=== PATIENT | male | born 1945 | race Hispanic/Latino ===

== ENCOUNTER 2018-04-08 15:40 | Emergency (ER) | payer MEDICARE, OTHER ==
[2018-04-08 16:02] VITALS: BMI 25.7
[2018-04-08 16:06] VITALS: PULSE 88
[2018-04-08] MEDS ORDERED: Albuterol-Ipratrop 3 mg / 0.5 (3 ml) UD IH STA ×2 (16:09→16:10)
[2018-04-08] MEDS ORDERED: Sodium Chloride 0.9% 500 ML IV STA (16:09)
[2018-04-08] MEDS ORDERED: Albuterol-Ipratrop 3 mg / 0.5 (3 ml) UD INH STA (16:09)
--- NOTE | 2018-04-08 16:16 | ED PDOC ---
HPI: SOB/CHF/COPD Time Seen by Provider: 04/08/18 16:01 Chief Complaint (Nursing): Shortness Of Breath Chief Complaint (Provider): Difficulty Breathing and Cough History Per: Patient History/Exam Limitations: no limitations Onset/Duration Of Symptoms: Days Current Symptoms Are (Timing): Still Present Exacerbating Factor(s): Laying Flat Current Respiratory Medications: None Severity: None Associated Symptoms: Productive Cough. denies: Fever, Chills, Bloody Cough, Dizziness, Light-headedness Additional Complaint(s): 72 year old male with a past medical history of bronchitis and hypertension presents to the emergency department complaining of difficulty breathing, headache and cough x2 days. Patient reports that a few days prior he was cleaning his air conditioning unit and used bleach and lysol spray and that is when his symptoms began. He also reports that when he lays down he feels as though he is drowning. Denies nausea, vomiting, neck pain, dizziness, chest pain , back pain, abdominal pain, lightheadedness, palpitations, ankle/leg swelling. Clear phlegm. Headache is mild and with his cough. Not worst in his life. No neck pain, numbness, tingles. No long distance travel, no hormone tx, no calf pain. Of note: At home patient currently takes Naprosyn and Prednisone PMD: [place] (Dr. Taylor) Past Medical History Reviewed: Historical Data, Nursing Documentation, Vital Signs Vital Signs: Last Vital Signs Temp 97.9 F 04/08/18 16:03 Pulse 88 04/08/18 16:03 Resp 16 04/08/18 16:30 BP 138/64 04/08/18 16:07 Pulse Ox 97 04/08/18 16:31 - Medical History PMH: Arthritis, Bronchitis, HTN (NO MEDICATION) Denies: Chronic Kidney Disease - Surgical History Surgical History: Tonsillectomy - Family History Family History: States: Unknown Family Hx - Social History Current smoker - smoking cessation education provided: Yes (Light Smoker < 10 Cigarettes Daily) Ex-Smoker (has not smoked in the last 12 months): No Alcohol: None Drugs: Denies - Home Medications Home Medications: Ambulatory Orders Medication Instructions Recorded Naproxen [Naprosyn] 250 mg PO DAILY 01/05/16 Albuterol Sulfate [Proair Hfa] 0.09 mg IH Q6H PRN #2 inh 04/08/18 predniSONE [predniSONE Tab] 20 mg PO BID 5 Days tab 04/08/18 - Allergies Allergies/Adverse Reactions: Allergies Allergy/AdvReac Type Severity Reaction Status Date / Time No Known Allergies Allergy Verified 12/22/14 19:24 Review of Systems ROS Statement: Except As Marked, All Systems Reviewed And Found Negative Constitutional: Negative for: Fever, Chills Cardiovascular: Negative for: Chest Pain, Palpitations Respiratory: Positive for: Cough, Shortness of Breath Gastrointestinal: Negative for: Nausea, Vomiting, Abdominal Pain Musculoskeletal: Negative for: Back Pain Neurological: Positive for: Headache Physical Exam - Reviewed Nursing Documentation Reviewed: Yes Vital Signs Reviewed: Yes - Physical Exam Appears: Positive for: Non-toxic, No Acute Distress Head Exam: Positive for: ATRAUMATIC, NORMAL INSPECTION, NORMOCEPHALIC Skin: Positive for: Normal Color, Warm, Dry. Negative for: Rash Eye Exam: Positive for: Normal appearance, EOMI, PERRL. Negative for: Nystagmus ENT: Positive for: Normal ENT Inspection. Negative for: Nasal Congestion, Tonsillar Exudate, Tonsillar Swelling Neck: Positive for: Normal, Painless ROM, Supple Cardiovascular/Chest: Positive for: Regular Rate, Rhythm, Chest Non Tender. Negative for: Gallop, Murmur, Tachycardia Respiratory: Positive for: Wheezing (Coarse breath sounds and bilateral wheezing ). Negative for: Rales, Rhonchi, Respiratory Distress Gastrointestinal/Abdominal: Positive for: Normal Exam, Bowel Sounds, Soft. Negative for: Tenderness, Mass, Guarding, Rebound Back: Positive for: Normal Inspection. Negative for: L CVA Tenderness, R CVA Tenderness, Vertebral Tenderness Extremity: Positive for: Normal ROM. Negative for: Tenderness, Calf Tenderness , Deformity, Swelling Neurologic/Psych: Positive for: Alert, Oriented, Gait - Laboratory Results Result Diagrams: 04/08/18 16:47 Interpretation Of Abn Labs: 11.1 wbc - ECG ECG: Positive for: Interpreted By Me, Viewed By Me ECG Rhythm: Positive for: Normal QRS, Normal ST Segment, Sinus Rhythm, Premature Ventricular Contraction (1) O2 Sat by Pulse Oximetry: 97 (RA) Pulse Ox Interpretation: Normal - Radiology X-Ray: Interpreted by Me, Viewed By Me X-Ray Interpretation: No Acute Disease - Progress ED Course And Treament: 1802: Stable. Pt. does not want to stay in the hospital for further evaluation and treatment. Pt. refusing further tx. States he feels much better. No dyspnea. Aware to return right away for further eval, tx, and addmit if changes his mind. Return for any dyspnea, chest pain, numbness, tingles, weakness, or not feeling well. Pt. is aaox3. Has capacity to make decisions. Medical Decision Making Medical Decision Makin Initial Impression 72 year old male presenting with difficulty breathing, cough and headache Initial Plan: * EKG * B-type natriuretic * CMP * Troponin * CBC * PTT * Prothrombin Time * Albuterol 3mL INH * NS 500 mls IV 1000 mls/hr * Solumedrol 125 mg IP * Nebulizer Treatment * Influenza A B * Reevaluation 1651 EKG performed: Normal sinus rhythm; No acute STT changes ------- Documented by Brittanie Sykes acting as a scribe for Gordo Saez MD. All medical record entries made by the Scribe were at my direction and personally dictated by me. I have reviewed the chart and agree that the record accurately reflects my personal performance of the history, physical exam, medical decision making, and the department course for this patient. I have also personally directed, reviewed, and agree with the discharge instructions and disposition. Disposition - Clinical Impression Clinical Impression: Dyspnea - Patient ED Disposition Is Patient to be Admitted: No - Disposition Referrals: Doris Swenson MD [Staff Provider] - 04/09/18 Disposition: Routine/Home Disposition Time: 18:11 Condition: STABLE Additional Instructions: Return right away for further evaluation, treatment, and admission. You are refusing at this time. We do not know what is causing your shortness of breath. If you get any shortness of breath, chest pain, weakness, or not feeling right come back right away. Prescriptions: Albuterol Sulfate [Proair Hfa] 0.09 mg IH Q6H PRN #2 inh PRN Reason: Wheezing predniSONE [predniSONE Tab] 20 mg PO BID 5 Days tab Instructions: Shortness of Breath (Dyspnea) (DC) Forms: [employer] (Thai)
[2018-04-08] MEDS ORDERED: Albuterol-Ipratrop 3 mg / 0.5 (3 ml) UD ONE (16:18)
[2018-04-08 17:00] LABS: BASO # 0.1 K/uL (0.0-0.2); BASO % 0.6 % (0.0-2.0); EOS # 0.4 K/uL (0.0-0.7); EOS % 3.4 % (0.0-4.0); HEMOGLOBIN 14.7 g/dL (12.0-18.0); LYMPH # 2.9 K/uL (1.0-4.3); LYMPH % 26.4 % (20.0-40.0); MEAN CELL VOLUME 90.3 fl (80.0-94.0); MEAN CORPUSCULAR HEMOGLOBIN 30.1 pg (27.0-31.0); MEAN CORPUSCULAR HGB CONC 33.4 g/dL (33.0-37.0); MEAN PLATELET VOLUME 9.2 fl (7.2-11.7); MONO # 1.6 K/uL (0.0-0.8); MONO % 14.2 % (0.0-10.0); NEUT # 6.2 K/uL (1.8-7.0); NEUT % 55.4 % (50.0-75.0); RBC 4.87 Mil/uL (4.40-5.90); RED CELL DISTRIBUTION WIDTH 13.2 % (11.5-14.5); WHITE BLOOD COUNT 11.1 K/uL (4.8-10.8)
[2018-04-08 17:04] LABS: PROTHROMBIN TIME 10.6 Seconds (9.8-13.1)
[2018-04-08 17:05] LABS: PARTIAL THROMBOPLASTIN TIME 29.3 Seconds (25.6-37.1)
[2018-04-08 17:22] LABS: ALB/GLOB RATIO 1.1 (1.0-2.1); ALBUMIN 4.2 g/dL (3.5-5.0); CALCIUM 9.1 mg/dL (8.4-10.2); GFR AFRICAN-AMERICAN > 60; GFR NON-AFRICAN AMERICAN > 60
[2018-04-08 17:40] LABS: B-TYPE NATRIURETIC PEPTIDE 68.9 pg/ml (0-900)
[2018-04-08 17:45] LABS: ALT/SGPT 26 U/L (21-72); AST/SGOT 40 U/L (17-59); BLOOD UREA NITROGEN 19 mg/dl (9-20)
[2018-04-08 18:28] VITALS: BP 133/82; RESP 17; TEMP 98.2; O2SAT 96
--- NOTE | 2018-04-09 10:16 | RAD ---
HISTORY: dyspnea COMPARISON: 09/12/2013 FINDINGS: LUNGS: No active pulmonary disease. PLEURA: No significant pleural effusion identified, no pneumothorax apparent. CARDIOVASCULAR: Normal. OSSEOUS STRUCTURES: No significant abnormalities. VISUALIZED UPPER ABDOMEN: Normal. OTHER FINDINGS: None. IMPRESSION: No active disease.
--- NOTE | 2018-04-09 16:54 | CARD ---
APPROVED REPORT EKG Measurement Heart [id number] <Conclusion> Sinus rhythm with occasional premature ventricular complexes Otherwise normal ECG
== END 2018-04-08 18:28 | disposition home or self-care (01) ==
LOC: H.ER 15:40
DX: R06.00 Dyspnea, unspecified (principal); R51 Headache; R05 Cough; I10 Essential (primary) hypertension; F17.210 Nicotine dependence, cigarettes, uncomplicated
CPT/HCPCS: 71045; 80053; 83880; 84484; 85025; 85610; 85730; 87804; 93005; 94640; 96374; 99284; J2930; J7040

== ENCOUNTER 2019-02-23 21:32 | Emergency (ER) | payer MEDICARE, OTHER ==
[2019-02-23 21:33] VITALS: BMI 25.7
[2019-02-23 21:37] VITALS: RESP 18
[2019-02-23 22:22] LABS: BASO # 0.1 K/uL (0.0-0.2); BASO % 1.1 % (0.0-2.0); EOS # 0.4 K/uL (0.0-0.7); EOS % 4.4 % (0.0-4.0); HEMOGLOBIN 14.9 g/dL (12.0-18.0); LYMPH # 3.2 K/uL (1.0-4.3); LYMPH % 33.5 % (20.0-40.0); MEAN CELL VOLUME 95.2 fl (80.0-94.0); MEAN CORPUSCULAR HGB CONC 34.7 g/dL (33.0-37.0); MONO # 0.7 K/uL (0.0-0.8); MONO % 7.6 % (0.0-10.0); NEUT # 5.1 K/uL (1.8-7.0); NEUT % 53.4 % (50.0-75.0); RBC 4.53 Mil/uL (4.40-5.90); RED CELL DISTRIBUTION WIDTH 13.7 % (11.5-14.5); WHITE BLOOD COUNT 9.6 K/uL (4.8-10.8)
[2019-02-23 22:26] LABS: ALB/GLOB RATIO 1.5 (1.0-2.1); ALBUMIN 4.7 g/dL (3.5-5.0); ALT/SGPT 28 U/L (21-72); AST/SGOT 29 U/L (17-59); BLOOD UREA NITROGEN 18 mg/dl (9-20); CALCIUM 9.1 mg/dL (8.4-10.2); GFR NON-AFRICAN AMERICAN > 60
--- NOTE | 2019-02-23 22:41 | ED PDOC ---
Syncope/Near Syncope/Dizziness Time Seen by Provider: 02/23/19 21:40 Chief Complaint (Nursing): Chest Pain Chief Complaint (Provider): Syncope History Per: Patient History/Exam Limitations: no limitations Additional Complaint(s): 73 y/o male presents to the ER for syncope. Patient reports he was taking a shower and suddenly fell back and does not know what happened. He was not sure how long he was out for and found himself on the floor of the shower unable to get up. He reports this has happened multiple times before with 10 times in the last 5 years. He has not been worked up for this. Patient presented today because it occurred in a common bathroom. Patient lives in an individual studio where the bathroom is shared. He admits to drinking alcohol today. Last meal was at 15:00 today. Denies chest pain, despite EMS reports he had mentioned it earlier. Denies drug use. PMD: Dr. Barron at [facility] Past Medical History Reviewed: Historical Data, Nursing Documentation, Vital Signs Vital Signs: Last Vital Signs Temp 98.1 F 02/23/19 21:34 Pulse 75 02/23/19 21:34 Resp 18 02/23/19 21:34 BP 116/66 02/23/19 21:34 Pulse Ox 98 02/23/19 21:34 Primary Care Provider: FAMILY PROVIDER,NO - Medical History PMH: Arthritis, Bronchitis, HTN (NO MEDICATION) Denies: Chronic Kidney Disease - Surgical History Surgical History: Tonsillectomy - Family History Family History: States: No Known Family Hx - Social History Current smoker - smoking cessation education provided: Yes - Home Medications Home Medications: Ambulatory Orders Medication Instructions Recorded Naproxen [Naprosyn] 250 mg PO DAILY 01/05/16 Albuterol Sulfate [Proair Hfa] 0.09 mg IH Q6H PRN #2 inh 04/08/18 predniSONE [predniSONE Tab] 20 mg PO BID 5 Days tab 04/08/18 - Allergies Allergies/Adverse Reactions: Allergies Allergy/AdvReac Type Severity Reaction Status Date / Time No Known Allergies Allergy Verified 12/22/14 19:24 Review of Systems ROS Statement: Except As Marked, All Systems Reviewed And Found Negative (as per HPI) Cardiovascular: Negative for: Chest Pain Respiratory: Negative for: Shortness of Breath Physical Exam - Reviewed Nursing Documentation Reviewed: Yes Vital Signs Reviewed: Yes - Physical Exam Appears: Positive for: No Acute Distress Head Exam: Positive for: ATRAUMATIC, NORMAL INSPECTION, NORMOCEPHALIC Skin: Positive for: Warm, Dry Eye Exam: Positive for: EOMI, PERRL, Conjunctival injection ENT: Negative for: Pharyngeal Erythema, Tonsillar Exudate Neck: Positive for: Painless ROM, Supple Cardiovascular/Chest: Positive for: Regular Rate, Rhythm. Negative for: Murmur Respiratory: Positive for: Normal Breath Sounds. Negative for: Respiratory Distress Gastrointestinal/Abdominal: Positive for: Soft. Negative for: Tenderness Back: Positive for: Normal Inspection. Negative for: Decreased ROM Extremity: Positive for: Normal ROM, Other (Large lipoma on right forearm, (-) nontender). Negative for: Deformity Lymphatic: Negative for: Adenopathy Neurological/Psych: Positive for: Awake, Alert, Oriented (x3). Negative for: Motor/Sensory Deficits - Laboratory Results Result Diagrams: 02/23/19 22:07 02/23/19 22:07 Lab Results: Total Bilirubin 0.4 mg/dl (0.2-1.3) 02/23/19 22:07 AST 29 U/L (17-59) 02/23/19 22:07 ALT 28 U/L (21-72) 02/23/19 22:07 Alkaline Phosphatase 72 U/L (38-126) 02/23/19 22:07 Total Protein 7.8 G/DL (6.3-8.2) 02/23/19 22:07 Albumin 4.7 g/dL (3.5-5.0) 02/23/19 22:07 Globulin 3.1 gm/dL (2.2-3.9) 02/23/19 22:07 Albumin/Globulin Ratio 1.5 (1.0-2.1) 02/23/19 22:07 - ECG O2 Sat by Pulse Oximetry: 98 (RA) Pulse Ox Interpretation: Normal Medical Decision Making Medical Decision Making: Initial Impression: Syncope Differential includes seizure, dehydration, electrolyte abnormality, and alcohol intoxication. Initial Plan: --Type and screen stat --Head CT --Alcohol serum stat --CMP --Lact acid stat --Magnesium stat --Phosphorous stat --Troponin stat --ED urine dipstick --CBC --PTT --Prothrombin time 23:00 Patient signed out to Dr. Constantino. Pending CT and sobriety. - Scribe Attestation: Documented by Tio Burt acting as a scribe for Betty Hillman MD. Provider Scribe Attestation: All medical record entries made by the Scribe were at my direction and personally dictated by me. I have reviewed the chart and agree that the record accurately reflects my personal performance of the history, physical exam, medical decision making, and the department course for this patient. I have also personally directed, reviewed, and agree with the discharge instructions and disposition. Disposition - Clinical Impression Clinical Impression: Alcohol use, Atypical chest pain - Disposition Disposition: Transfer of Care Disposition Time: 23:00 Condition: STABLE Forms: [employer] (Croatian) Print Language: GERMAN Patient Signed Over To: Liliana Constantino
--- NOTE | 2019-02-23 23:42 | ED PDOC ---
- Laboratory Results Result Diagrams: 02/23/19 22:07 02/23/19 22:07 Lab Results: Troponin I < 0.0120 ng/mL (0.00-0.120) 02/23/19 22:07 Total Bilirubin 0.4 mg/dl (0.2-1.3) 02/23/19 22:07 AST 29 U/L (17-59) 02/23/19 22:07 ALT 28 U/L (21-72) 02/23/19 22:07 Alkaline Phosphatase 72 U/L (38-126) 02/23/19 22:07 Total Protein 7.8 G/DL (6.3-8.2) 02/23/19 22:07 Albumin 4.7 g/dL (3.5-5.0) 02/23/19 22:07 Globulin 3.1 gm/dL (2.2-3.9) 02/23/19 22:07 Albumin/Globulin Ratio 1.5 (1.0-2.1) 02/23/19 22:07 - ECG O2 Sat by Pulse Oximetry: 98 (RA) Pulse Ox Interpretation: Normal Medical Decision Making Medical Decision Making: Time: 2300 Patient is a 73 y/o male brought into the ED by EMS for alcohol abuse. Patient was found passed out, heavily intoxicated in the shower by other residents in his building. Patient denies headache, nausea, and vomiting. Patient endorsed to provider from Betty Hillman MD. Pending CT. Alcohol level 238, otherwise normal labs. As per EMS report patient also complained of chest pain, however, adamantly denies chest pain now with normal EKG. Time: 2320 FINDINGS: BRAIN: Mild basal ganglia calcifications bilaterally. No CT evidence for acute intracranial abnormality. No midline shift or mass effect. No evidence for acute intracranial hemorrhage. VENTRICLES: No hydrocephalus. ORBITS: The orbits are unremarkable. SINUSES AND MASTOIDS: The paranasal sinuses and mastoid air cells are clear. BONES: No evidence for displaced calvarial fracture. SOFT TISSUES: Unremarkable. MISCELLANEOUS: No evidence for acute territorial infarction. IMPRESSION: 1. Mild basal ganglia calcifications bilaterally. 2. No CT evidence for acute intracranial abnormality. Electronically signed on February 23, 2019 11:21:56 PM EDT by: Marty Cook M.D., Certified by [facility], Diagnostic Radiology Time: 109 Patient awake, alert, and oriented. No sign of deficit. Patient to be discharged home. Scribe Attestation: Documented by Harry Zayas, acting as a scribe Xavi Constantino MD Provider Scribe Attestation: All medical record entries made by the Scribe were at my direction and personally dictated by me. I have reviewed the chart and agree that the record accurately reflects my personal performance of the history, physical exam, medical decision making, and the department course for this patient. I have also personally directed, reviewed, and agree with the discharge instructions and disposition. Disposition - Clinical Impression Clinical Impression: Alcohol use, Atypical chest pain - POA Present On Arrival: None - Disposition Referrals: Alcoholics Anonymous [Outside] Disposition: Routine/Home Disposition Time: 01:15 Condition: IMPROVED Additional Instructions: Do not consume alcohol. Seek professional help for alcohol addiction. Follow up with primary medical doctor. Forms: [employer] (Montenegrin) Print Language: TELUGU
[2019-02-24 02:04] VITALS: BP 128/99; PULSE 81; TEMP 97.8
[2019-02-24 05:05] VITALS: O2SAT 98
--- NOTE | 2019-02-24 09:38 | CARD ---
APPROVED REPORT Date of service: 02/23/2019 EKG Measurement Heart [id number] <Conclusion> Normal sinus rhythm Normal ECG
--- NOTE | 2019-02-24 12:04 | CT ---
Date of service: 02/23/2019 PROCEDURE: CT HEAD WITHOUT CONTRAST. HISTORY: syncope COMPARISON: None available TECHNIQUE: Axial computed tomography images were obtained through the head/brain without intravenous contrast. Radiation dose: Total exam DLP = 1256.63 mGy-cm. This CT exam was performed using one or more of the following dose reduction techniques: Automated exposure control, adjustment of the mA and/or kV according to patient size, and/or use of iterative reconstruction technique. FINDINGS: HEMORRHAGE: No intracranial hemorrhage. BRAIN: No mass effect or edema. No atrophy or chronic microvascular ischemic changes. VENTRICLES: Unremarkable. No hydrocephalus. CALVARIUM: Unremarkable. PARANASAL SINUSES: Chronic frontal and ethmoid sinusitis. MASTOID AIR CELLS: Unremarkable as visualized. No inflammatory changes. OTHER FINDINGS: None. IMPRESSION: No intracranial mass, hemorrhage or evidence of acute infarct. Chronic paranasal sinusitis. No additional abnormality. The preliminary findings for this examination were reported by [facility] at 11:21 p.m. on 02/23/2019. There is concurrence of this report with the preliminary findings.
== END 2019-02-24 01:51 | disposition home or self-care (01) ==
LOC: H.ER 21:32
DX: R07.89 Other chest pain (principal); F10.10 Alcohol abuse, uncomplicated; F17.200 Nicotine dependence, unspecified, uncomplicated; I10 Essential (primary) hypertension; J32.9 Chronic sinusitis, unspecified
CPT/HCPCS: 70450; 80053; 82948; 83605; 83735; 84100; 84484; 85025; 86850; 86900; 93005; 99285; G0480